=== PATIENT | female | born 1990 | race Asian ===

== ENCOUNTER 2016-09-28 17:20 | Observation (INO) | payer OTHER ==
[~2016-09-28] VITALS: Ht 165.1 cm; Wt 61.7 kg
== END 2016-09-28 18:45 | disposition home or self-care (01) ==
LOC: SPU 17:20
PROVIDERS: ADMIT Obstetrics & Gynecology; ATTEND Obstetrics & Gynecology
DX: O26.892 Other specified pregnancy related conditions, second trimester (principal); N89.8 Other specified noninflammatory disorders of vagina; Z3A.39 39 weeks gestation of pregnancy
CPT/HCPCS: 81002; G0378

== ENCOUNTER 2016-10-01 04:30 | Inpatient (IN) | payer OTHER ==
[~2016-10-01] VITALS: Ht 160 cm; Wt 61.7 kg
[2016-10-01] MEDS ORDERED: LR 1,000 ML IV ONE (04:49)
[2016-10-01] MEDS ORDERED: LR 1,000 ML IV SCH (04:49)
[2016-10-01] MEDS ORDERED: OXYTOCIN/NORMAL SALINE 1,000 ML IV SCH (04:49)
[2016-10-01] MEDS ORDERED: NALBUPHINE HCL 10 MG/ML AMP IVP PRN (05:00)
[2016-10-01 05:55] LABS: BASOPHILS % (AUTO) 0.4 % (0.0-2.0); EOSINOPHILS # (AUTO) 0.1 K/uL (0.0-0.4); EOSINOPHILS % (AUTO) 0.9 % (0.0-4.0); HEMATOCRIT 37.6 % (36-48); HEMOGLOBIN 12.7 g/dL (12.0-16.0); LYMPHOCYTES # (AUTO) 3.2 K/uL (1.0-5.5); LYMPHOCYTES % (AUTO) 29.2 % (20.5-51.5); MEAN CORPUSCULAR HEMOGLOBIN 32 pg (27-31); MEAN CORPUSCULAR HGB CONC 34 % (32-36); MEAN CORPUSCULAR VOLUME 94 fL (79.0-98.0); MONOCYTES # (AUTO) 0.8 K/uL (0.0-1.0); NEUTROPHILS # (AUTO) 6.8 K/uL (1.8-7.7); NEUTROPHILS % (AUTO) 62.5 % (40.0-70.0); PLATELET COUNT (AUTO) 216 K/uL (130-430); RED CELL DISTRIBUTION WIDTH 11.6 % (9.0-15.0); WHITE BLOOD COUNT (AUTO) 10.9 K/uL (4.8-10.8)
[2016-10-01] MEDS ORDERED: FENT2mCg/mL-ROPIVA0.2%/NS EPID 150 ML EP ONE (06:12)
[2016-10-01] MEDS ORDERED: LR 500 ML IV ONE (06:22)
[2016-10-01] MEDS ORDERED: FENT2mCg/mL-ROPIVA0.2%/NS EPID 150 ML EP SCH (06:30)
[2016-10-01] MEDS ORDERED: ePHEDrine sulfate 50 MG/ML VIAL IVP PRN (06:30)
[2016-10-01 07:33] VITALS: BP_SYST 129
[2016-10-01] MEDS ORDERED: OXYTOCIN/NORMAL SALINE 1,000 ML IV ONE (15:07)
[2016-10-01] MEDS ORDERED: HYDROCORTISONE 0.5%, 28.35 GM TOPICAL CREAM TP PRN (15:15)
[2016-10-01] MEDS ORDERED: METHYLERGONOVINE MALEATE 0.2 MG TABLET PO PRN (15:15)
[2016-10-01] MEDS ORDERED: OXYCODONE/ACETAMINOPHEN 5-325 TABLET PO PRN ×2 (15:15)
[2016-10-01] MEDS ORDERED: ANUSOL 1 EA SUPP.RECT (PREPARATION H) RC PRN (15:15)
[2016-10-01] MEDS ORDERED: DERMOPLAST SPRAY TP PRN (15:15)
[2016-10-01] MEDS ORDERED: ACETAMINOPHEN 325 MG TABLET PO PRN (15:15)
[2016-10-01] MEDS ORDERED: LANOLIN 7 GM OINT. TP PRN (15:15)
[2016-10-01] MEDS ORDERED: GLYCERIN/WITCH HAZEL (TUCKS PADS) TP PRN (15:15)
[2016-10-01] MEDS: IBUPROFEN 600 MG TABLET PO SCH (18:15)
[2016-10-02] MEDS: IBUPROFEN 600 MG TABLET PO SCH ×5 (00:09→23:17)
[2016-10-02] MEDS: DOCUSATE SODIUM 100 MG CAPSULE PO PRN ×2 (05:37→23:16)
[2016-10-02 07:12] LABS: HEMATOCRIT 27.4 % (36-48); HEMOGLOBIN 9.2 g/dL (12.0-16.0)
[2016-10-02] MEDS ORDERED: MILK OF MAGNESIA 30 ML UDC PO PRN (08:45)
[2016-10-02] MEDS: FERROUS SULFATE 325 MG TABLET.DR PO SCH ×2 (11:44→23:17)
[2016-10-02] MEDS: SENNOSIDES/DOCUSATE SODIUM 1 TAB TABLET(SENOKOT-S) PO PRN (23:16)
[2016-10-03] MEDS: IBUPROFEN 600 MG TABLET PO SCH ×2 (05:12→12:34)
[2016-10-03] MEDS: SENNOSIDES/DOCUSATE SODIUM 1 TAB TABLET(SENOKOT-S) PO PRN (12:33)
[2016-10-03] MEDS: DOCUSATE SODIUM 100 MG CAPSULE PO PRN (12:33)
[2016-10-03] MEDS: FERROUS SULFATE 325 MG TABLET.DR PO SCH (12:33)
== END 2016-10-03 15:30 | disposition home or self-care (01) | DRG 775 ==
LOC: SPU 04:30
PROVIDERS: ADMIT Obstetrics & Gynecology; ATTEND Obstetrics & Gynecology
PROC: 10D07Z6 Extraction of Products of Conception, Vacuum, Via Natural or Artificial Opening (ICD-10-PCS; principal; 2016-10-01)
PROC: 0W8NXZZ Division of Female Perineum, External Approach (ICD-10-PCS; 2016-10-01)
PROC: 3E0S3CZ (ICD-10-PCS; 2016-10-01)
PROC: 00HU33Z Insertion of Infusion Device into Spinal Canal, Percutaneous Approach (ICD-10-PCS; 2016-10-01)
DX: O80 Encounter for full-term uncomplicated delivery (principal); Z37.0 Single live birth; Z3A.39 39 weeks gestation of pregnancy
CPT/HCPCS: 36415; 81002-TC; 85018-TC; 85025; 86592; 86886; 86900; 86901; J2590; J3010